=== PATIENT | female | born 1960 | race Caucasian/White ===

== ENCOUNTER → 2016-12-28 | Outpatient (CLI) | payer OTHER ==
[~2016-12-28] MED LIST: FLEXERIL10 MG PO
[2016-12-28 10:32] LABS: HEMOGLOBIN 13.3 g/dL (12.2-16.2); LYMPH # 2.1 K/mm3 (0.7-4.5); LYMPH % 31.2 % (10-50.0)
[2016-12-28 13:17] LABS: BUN 19 mg/dL (7-18)
[2016-12-28 13:18] LABS: GFR (ESTIMATED) 86 ML/MIN (59-)
== END ==
LOC: LAB 10:14
PROVIDERS: Nurse Practitioner Family
DX: E53.8 Deficiency of other specified B group vitamins (principal); Z00.00 Encounter for general adult medical examination without abnormal findings

== ENCOUNTER → 2017-10-25 | Outpatient (CLI) | payer OTHER ==
--- NOTE | 2017-10-25 13:34 | RADIOLOGY REPORT PS360 ---
SACROILIAC JOINT CLINICAL INDICATION: BURSITIS OF RT HIP,RT HIP PAIN ORDERING PHYSICIAN: BABAR HURLEY APRN PATIENT AGE: 57 years COMPARISON: None FINDINGS: The SI joints have an unremarkable appearance. No sclerosis or lytic change. There is degenerative disc disease with facet arthritic change in the lower lumbar spine IMPRESSION: 1. Negative SI joints. 2. Lumbar spondylosis
--- NOTE | 2017-10-25 13:34 | RADIOLOGY REPORT PS360 ---
HIP RT 2-3V W/PELVIS IF PERFOR HISTORY: BURSITIS OF RT HIP,RT HIP PAIN ORDERING PHYSICIAN: BABAR HURLEY APRN PATIENT AGE: 57 years COMPARISON: None FINDINGS: There are minimal osteoarthritic changes of the right hip. No fracture or dislocation. No lytic or blastic change. IMPRESSION: Minimal osteoarthritis of the right hip
== END ==
LOC: RAD 12:05
DX: M70.61 Trochanteric bursitis, right hip (principal); M46.1 Sacroiliitis, not elsewhere classified; M25.551 Pain in right hip